=== PATIENT | female | born 1985 | race Caucasian/White ===

== ENCOUNTER 2018-11-14 12:21 | Emergency (ER) | payer OTHER ==
[~2018-11-14] VITALS: Ht 162.6 cm; Wt 63.5 kg
[~2018-11-14 12:21] MED LIST: ACETAMINOPHEN-1 EAC1 PO; KEFLEX500 MG PO; NORA-BE0.35 MG PO; PROZAC20 MG PO
[2018-11-14] MEDS ORDERED: BIRTH CONTROL PO (12:40)
[2018-11-14 13:06] LABS: URINE BILIRUBIN NEGATIVE (Negative); URINE BLOOD NEGATIVE (Negative); URINE CLARITY CLEAR; URINE COLOR YELLOW; URINE GLUCOSE-RANDOM NEGATIVE (Negative); URINE KETONES NEGATIVE (Negative); URINE LEUKOCYTES-REFLEX NEGATIVE (Negative); URINE NITRITE-REFLEX NEGATIVE (Negative); URINE PROTEIN NEGATIVE (Negative); URINE SPECIFIC GRAVITY 1.015 (1.005-1.030); URINE UROBILINOGEN 0.2 E.U./dl (0.2-1.0)
[2018-11-14 13:06] LABS: ABSOLUTE BASOPHILS 0.1 thou/uL (0.0-0.2); ABSOLUTE MONOCYTES 0.5 thou/uL (0.0-1.2); ABSOLUTE NEUTROPHILS 6.6 thou/uL (1.6-8.1); BASOPHILS 0.6 %; EOSINOPHILS 0.4 %; HEMATOCRIT 40.9 % (37.0-47.0); HEMOGLOBIN 13.7 gm/dL (12.0-15.0); LYMPHOCYTES 12.5 %; MCH 27.1 pg (26.0-34.0); MCHC 33.5 g/dL (28.0-37.0); MCV 80.8 fL (80.0-100.0); MONOCYTES 5.9 %; MPV 9.8 fl. (7.2-11.1); NUCLEATED RBCS 0 /100WBC; PLATELET COUNT* 197 thou/uL (150-400); POLYS 80.6 %; RBC 5.05 mil/uL (4.20-5.00); RDW-CV 13.3 % (10.5-14.5); WBC 8.2 thou/uL (4.0-11.0)
[2018-11-14 13:20] LABS: CALCIUM 8.8 mg/dL (8.5-10.1); CREATININE 0.7 mg/dL (0.6-1.3); POTASSIUM 3.4 mmol/L (3.5-5.1)
[2018-11-14 13:31] LABS: ALBUMIN 3.3 g/dL (3.4-5.0); TOTAL BILIRUBIN 0.5 mg/dL (<0.1-1.0); TOTAL PROTEIN 6.9 g/dL (6.4-8.2)
[2018-11-14] MEDS ORDERED: MEDROLDOSEPACK PO (14:36)
[2018-11-14] MEDS ORDERED: NAPROSYN500 MG PO (14:36)
[2018-11-14] MEDS ORDERED: ACETAMINOPHEN-1 EAC1 PO (14:36)
[2018-11-14 15:01] VITALS: BP 125/53
== END 2018-11-14 15:03 | disposition home or self-care (01) ==
LOC: M.ERS 12:21
PROVIDERS: Physician Assistant
DX: N28.1 Cyst of kidney, acquired (principal); M46.1 Sacroiliitis, not elsewhere classified; Z88.2 Allergy status to sulfonamides; Z98.890 Other specified postprocedural states